=== PATIENT | female | born 1975 | race Caucasian/White ===

== ENCOUNTER 2017-04-23 08:22 | Emergency (ER) | payer OTHER ==
[~2017-04-23] VITALS: Ht 162.6 cm; Wt 89.8 kg
[~2017-04-23 08:22] MED LIST: DEBROX15 M1 LEFT EAR; IBUPROFEN800 MG ORAL; KEFLEX500 MG ORAL; METHADONE HCL10 MG PO
[2017-04-23 08:41] VITALS: BP 139/85
[2017-04-23] MEDS ORDERED: CLINDAMYCIN HC300 MG ORAL (08:47)
[2017-04-23 08:58] VITALS: BP 139/85
--- NOTE | 2017-04-23 08:58 | Emergency Room Report ---
History of Present Illness General Chief Complaint: Toothache Source: Patient Present Illness HPI 42-year-old female walked in with complaints of pain and swelling to right lower side of mouth associated with known cracked tooth. She states she tried to go to dentist however was unable to get appointment today and she states that her dentist won't pull to Michel infection history first. Has been taking ibuprofen 3 times a day and apply and ice for pain. Allergies: Coded Allergies: No Known Allergies (Unverified , 05/13/14) Patient History Past Medical History: none Past Surgical History: none Pertinent Family History: none Social History: Denies: smoking, alcohol use, drug use Now: No Immunizations: UTD Reviewed Nursing Documentation: PMH: Agreed, PSxH: Agreed Nursing Documentation-PMH Hx Hypertension: Yes - hyperlipidemia Hx Diabetes: Yes History Of Psychiatric Problem: Yes - Bipolar Review of Systems All Other Systems: negative except mentioned in HPI Physical Exam Vital Signs Date Time Temp Pulse Resp B/P (MAP) Pulse Ox O2 Delivery O2 Flow Rate FiO2 04/23/17 08:28 98.3 110 18 139/85 99 98.2 Sp02 EP Interpretation: reviewed, normal General Appearance: normal inspection, well appearing, no apparent distress, alert, GCS 15, non-toxic Head: normocephalic, atraumatic Eyes: bilateral eye PERRL, bilateral eye EOMI ENT: normal ENT inspection, hearing grossly normal, normal pharynx, no angioedema, normal voice, TMs + canals normal, uvula midline, moist mucus membranes, other - Tooth 30, 1st molar is cracked, jagged edge. Associated lateral gum swelling Neck: normal inspection, full range of motion, supple, thyroid normal, no meningismus, no bony tend Respiratory: normal inspection, lungs clear, normal breath sounds, no rhonchi, no respiratory distress, no retraction, no accessory muscle use, no wheezing, speaking full sentences Cardiovascular #1: regular rate, rhythm, no edema, no JVD, normal capillary refill Gastrointestinal: normal inspection, normal bowel sounds, non tender, soft, no mass, no peritonitis, non-distended, no guarding, no hernia, no pulsatile mass Genitourinary: no CVA tenderness Musculoskeletal: normal inspection, back normal, normal range of motion, no calf tenderness, pelvis stable, Stephen's Sign negative Neurologic: normal inspection, alert, oriented x3, responsive, member services coordinator III-XII nml as tested, motor strength/tone normal, cerebellar normal, normal gait, speech normal Psychiatric: normal inspection, judgement/insight normal, mood/affect normal, no suicidal/homicidal ideation, no delusions Skin: normal inspection, normal color, no rash Lymphatic: normal inspection, no adenopathy Medical Decision Making Diagnostic Impression: Primary Impression: Cracked tooth Additional Impression: Periapical abscess ER Course Vital signs stable Associated infection with cracked tooth #30, right lower mouth Provided antibiotics Recommend continued ibuprofen 3 times a day and applying ice Recommend close dental followup for extraction ER course: Patient has remained stable during ED stay. Disposition: Patient is to be discharged to home. Prescriptions given are clindamycin Patient is instructed to follow up with dentist in 2 days Strict return precautions discussed with patient such as fever, chills, worsening/severe pain, nausea, vomiting, which may indicate severe illness. Patient verbalizes understanding and agrees with plan. Please note that this Emergency Department Report was dictated using [employer] delivery manager technology software, occasionally this can lead to erroneous entry secondary to interpretation by the dictation equipment Last Vital Signs Date Time Temp Pulse Resp B/P (MAP) Pulse Ox O2 Delivery O2 Flow Rate FiO2 04/23/17 08:41 98.2 76 18 139/85 99 98.2 Status: improved Disposition: HOME, SELF-CARE Condition: Improved Scripts Clindamycin Hcl (CLINDAMYCIN HCL) 300 Mg Capsule 300 MG ORAL THREE TIMES A DAY for 7 Days, #21 CAP Prov: CAMILLE ZARATE M.D. 04/23/17 Patient Instructions: Dental Pain Additional Instructions: - Get over the counter clove oil and apply to broken tooth - Take ALL antibiotics to treat infection - Follow up with dentist for tooth extraction CAMILLE ZARATE M.D. Apr 23, 2017 08:58
== END 2017-04-23 09:00 | disposition home or self-care (01) ==
LOC: EMR 08:54
DX: K03.81 Cracked tooth (principal); K04.7 Periapical abscess without sinus; E11.9 Type 2 diabetes mellitus without complications; F31.9 Bipolar disorder, unspecified; E78.5 Hyperlipidemia, unspecified
CPT/HCPCS: 99283

== ENCOUNTER 2018-10-02 11:57 | Emergency (ER) | payer OTHER ==
[~2018-10-02] VITALS: Ht 162.6 cm; Wt 78.9 kg
[~2018-10-02 11:57] MED LIST changes: +CLINDAMYCIN HC300 MG ORAL
--- NOTE | 2018-10-02 12:24 | NUR ---
ED Nurse Note: Pt walked in ED, aaox4 c/o abdominal pain, worse when ambulating. Pt states she had enema yesterday with little BM output. ERMD at bedside.
[2018-10-02 12:28] VITALS: BP 114/73
--- NOTE | 2018-10-02 12:40 | Emergency Room Report ---
History of Present Illness General Chief Complaint: Abdominal Pain Source: Medical Record Present Illness HPI Patient is a 43-year-old female presents after increased suprapubic pain. Patient had prior history of opiate dependence and is currently on methadone treatment. She reports having decreased bowel movements over the past few days. She states she has had ovarian cyst in the past. She reports having no menses since initiation of methadone. Patient reports taking enema without any improvement in her constipation.Patient does report having a small bowel movement after using the enema. She states the pain was somewhat improved after this.Patient states that she looked into medication for opioid induced constipation which was too expensive for her. Allergies: Coded Allergies: No Known Allergies (Unverified , 05/13/14) Patient History Past Surgical History: none Reviewed Nursing Documentation: PMH: Agreed; PSxH: Agreed Nursing Documentation-PMH Past Medical History: No History, Except For Hx Hypertension: Yes - hyperlipidemia Hx Diabetes: Yes Hx Neurological Problems: Yes - sciatica pain, herniated disk Review of Systems All Other Systems: negative except mentioned in HPI Physical Exam Vital Signs Date Time Temp Pulse Resp B/P (MAP) Pulse Ox O2 Delivery O2 Flow Rate FiO2 10/02/18 12:04 97.7 82 18 114/73 (87) 97 Room Air Sp02 EP Interpretation: reviewed, normal General Appearance: normal inspection, well appearing, no apparent distress, alert, GCS 15 Head: atraumatic ENT: normal ENT inspection, hearing grossly normal, normal voice Neck: normal inspection, full range of motion, supple, no bony tend Respiratory: normal inspection, lungs clear, normal breath sounds, no respiratory distress, no retraction, no wheezing Cardiovascular #1: regular rate, rhythm, no edema Gastrointestinal: normal inspection, normal bowel sounds, non tender, soft, no guarding, no hernia Genitourinary: no CVA tenderness Musculoskeletal: normal inspection, back normal, normal range of motion Neurologic: normal inspection, alert, oriented x3, responsive, log handler III-XII nml as tested, motor strength/tone normal, speech normal Psychiatric: normal inspection, judgement/insight normal, mood/affect normal Medical Decision Making Diagnostic Impression: Primary Impression: Constipation ER Course Patient presented for abdominal pain. Differential diagnoses included ischemic bowel, appendicitis, perforated viscus, abdominal aortic aneurysm, inferior myocardial infarction, viral gastroenteritis among others. Patient has a benign exam and does not appear to require any further imaging or laboratory testing at this time. test was ordered due to patient history of abnormal menses. Last Vital Signs Date Time Temp Pulse Resp B/P (MAP) Pulse Ox O2 Delivery O2 Flow Rate FiO2 10/02/18 12:28 97.7 86 18 114/73 97 Room Air Status: improved Disposition: HOME, SELF-CARE Condition: Stable Obed Pearson MD Oct 02, 2018 12:40
[2018-10-02] MEDS ORDERED: LACTULOSE20 GM/301 ORAL (13:42)
[2018-10-02 13:48] VITALS: BP 110/75
--- NOTE | 2018-10-02 13:49 | NUR ---
ER DISCHARGE NOTE: Patient is cleared to be discharged per ERMD, pt is aox4, on room air, with stable vital signs. pt was given dc and prescription instructions, pt was able to verbalize understanding, pt id band removed. pt is able to ambulate with steady gait. pt took all belongings.
== END 2018-10-02 13:48 | disposition home or self-care (01) ==
LOC: EMR 12:36
DX: K59.00 Constipation, unspecified (principal); E11.9 Type 2 diabetes mellitus without complications; E78.5 Hyperlipidemia, unspecified; Z79.891 Long term (current) use of opiate analgesic
CPT/HCPCS: 81025; 99283

== ENCOUNTER 2018-12-08 12:21 | Emergency (ER) | payer OTHER ==
[~2018-12-08] VITALS: Ht 162.6 cm; Wt 79.4 kg
[~2018-12-08 12:21] MED LIST changes: +LACTULOSE20 GM/301 ORAL
--- NOTE | 2018-12-08 13:15 | Emergency Room Report ---
History of Present Illness General Chief Complaint: Dyspnea/Respdistress Source: Patient, Medical Record Present Illness HPI Patient 43-year-old female presents after increased left lower extremity discomfort. Patient had some prior history of similar symptoms in the past 1 week. She states she was recently at [facility] for left leg swelling. At that time she had a duplex ultrasound performed which showed no evidence of DVT. Patient states that the swelling had somewhat improved. She denies any vomiting or diarrhea. She reports having some increased discomfort to the left leg. She had some prior history of sciatica. She reports being a smoker. She denies any fever. Allergies: Coded Allergies: No Known Allergies (Unverified , 05/13/14) Patient History Last Menstrual Period: 10 yrs ago Nursing Documentation-[facility] Past Medical History: No History, Except For Hx Hypertension: Yes - hyperlipidemia Hx Diabetes: Yes Hx Neurological Problems: Yes - sciatica pain, herniated disk Review of Systems All Other Systems: negative except mentioned in HPI Physical Exam Vital Signs Date Time Temp Pulse Resp B/P (MAP) Pulse Ox O2 Delivery O2 Flow Rate FiO2 12/08/18 12:24 98.4 89 16 132/79 (96) 97 Room Air Sp02 EP Interpretation: reviewed, normal General Appearance: normal inspection, well appearing, no apparent distress, alert, GCS 15 Head: atraumatic ENT: normal ENT inspection, hearing grossly normal, normal voice Neck: normal inspection, full range of motion, supple, no bony tend Respiratory: normal inspection, lungs clear, normal breath sounds, no respiratory distress, no retraction, no wheezing Cardiovascular #1: regular rate, rhythm, no edema Gastrointestinal: normal inspection, normal bowel sounds, non tender, soft, no guarding, no hernia Genitourinary: no CVA tenderness Musculoskeletal: normal inspection, back normal, normal range of motion Neurologic: normal inspection, alert, oriented x3, responsive, riding coach III-XII nml as tested, speech normal Psychiatric: normal inspection, judgement/insight normal, mood/affect normal Skin: no rash, normal color Medical Decision Making Diagnostic Impression: Primary Impression: Leg pain ER Course Patient presented for left leg pain. Differential diagnosis include was not limited to deep venous thrombosis, vascular insufficiency, arthritis, sciatica among others. Patient has a benign exam and does not appear to require laboratory testing at this time. Urinalysis showed no definite infection. Duplex ultrasound showed no DVT. Patient was given prescription for medications for symptomatic treatment. Patient was advised to follow-up with primary care physician for recheck. She is advised to return if worse. Labs Test 12/08/18 13:15 Urine Color Pale yellow Urine Appearance Clear Urine pH 5 (4.5-8.0) Urine Specific [place] 1.010 (1.005-1.035) Urine Protein Negative (NEGATIVE) Urine Glucose (UA) Negative (NEGATIVE) Urine Ketones Negative (NEGATIVE) Urine Blood Negative (NEGATIVE) Urine Nitrite Negative (NEGATIVE) Urine Bilirubin Negative (NEGATIVE) Urine Urobilinogen Normal MG/DL (0.0-1.0) Urine Leukocyte Esterase 2+ (NEGATIVE) Urine RBC 0-2 /HPF (0 - 2) Urine WBC 5-10 /HPF (0 - 2) Urine Squamous Epithelial Cells Few /LPF (NONE/OCC) Urine Bacteria Few /HPF (NONE) Urine HCG, Qualitative Negative (NEGATIVE) Last Vital Signs Date Time Temp Pulse Resp B/P (MAP) Pulse Ox O2 Delivery O2 Flow Rate FiO2 12/08/18 12:24 98.4 89 16 132/79 (96) 97 Room Air Status: improved Disposition: HOME, SELF-CARE Condition: Stable Scripts Diclofenac Sodium (VOLTAREN) 100 Gm Gel..gram. 5 GM TP DAILY, #100 GM Prov: Obed Pearson MD 12/08/18 Referrals: NON PHYSICIAN (PCP) Obed Pearson MD Dec 08, 2018 13:15
[2018-12-08 13:30] LABS: APPEARANCE,URINE CLEAR; BILIRUBIN, URINE NEGATIVE (NEGATIVE); COLOR,URINE PALE YELLOW; GLUCOSE, URINE (UA) NEGATIVE (NEGATIVE); KETONES,URINE NEGATIVE (NEGATIVE); LEUKOCYTE ESTERASE ,URINE 2+ (NEGATIVE); NITRITE,URINE NEGATIVE (NEGATIVE); PH,URINE 5 (4.5-8.0); PROTEIN,URINE NEGATIVE (NEGATIVE); UROBILINOGEN,URINE NORMAL MG/DL (0.0-1.0)
--- NOTE | 2018-12-08 13:36 | NUR ---
ED Nurse Note:urine sent to labs and U/S done
[2018-12-08] MEDS ORDERED: VOLTAREN100 G1 TP (13:48)
--- NOTE | 2018-12-08 14:00 | NUR ---
ER DISCHARGE NOTE: Patient is cleared to be discharged per ERMD, pt is aox4, on room air, with stable vital signs. pt was given dc and prescription instructions, pt was able to verbalize understanding, pt is able to ambulate with steady gait. pt took all belongings.
[2018-12-08 14:05] VITALS: BP 132/79
[2018-12-08 14:07] VITALS: BP 132/79
--- NOTE | 2018-12-08 14:17 | Diagnostic Imaging Report ---
Indication: Left lower extremity pain and swelling. Technique: Duplex Doppler imaging performed from the left common femoral vein to the popliteal vein. FINDINGS: Normal compressibility demonstrated from the common femoral vein to the popliteal vein. Respiratory phasicity and good augmentation demonstrated on waveform analysis. There is no evidence of thrombosis. IMPRESSION: No evidence of deep venous thrombosis within the left lower extremity.
== END 2018-12-08 14:08 | disposition home or self-care (01) ==
LOC: EMR 12:40
DX: M79.605 Pain in left leg (principal); R60.0 Localized edema; E78.5 Hyperlipidemia, unspecified; E11.9 Type 2 diabetes mellitus without complications; F17.200 Nicotine dependence, unspecified, uncomplicated; I10 Essential (primary) hypertension
CPT/HCPCS: 81003; 81025; 93971; Z7502; 99284

== ENCOUNTER 2019-04-30 09:46 | Emergency (ER) | payer OTHER ==
[~2019-04-30] VITALS: Ht 162.6 cm; Wt 89.8 kg
[~2019-04-30 09:46] MED LIST changes: +VOLTAREN100 G1 TP
--- NOTE | 2019-04-30 10:03 | NUR ---
ED Nurse Note: PT WALKED IN DUE TO ELEVATED POTASSIUM OF 5.9 LEVEL AND BLOOD WORK DONE ON 04/27/19. STATE SNOT FEELING GOOD BUT DENIES CHEST PAIN. AAO X, AMBULATORY WITH NON LABORED BREATHING. NOTED PT TO ANXIOUS.
[2019-04-30] MEDS ORDERED: CLARITIN5 MG ORAL (10:04)
[2019-04-30] MEDS ORDERED: METHADONE HCL10 MG ORAL (10:04)
[2019-04-30] MEDS ORDERED: MIRTAZAPINE30 MG ORAL (10:04)
[2019-04-30] MEDS ORDERED: FENOFIBRATE43 MG ORAL (10:04)
[2019-04-30] MEDS ORDERED: SEROQUEL200 MG ORAL (10:04)
[2019-04-30] MEDS ORDERED: DEPAKOTE250 MG PO (10:04)
[2019-04-30] MEDS ORDERED: ATORVASTATIN CA20 MG ORAL (10:04)
[2019-04-30 10:09] VITALS: BP 140/69
--- NOTE | 2019-04-30 10:24 | NUR ---
ED Nurse Note: COLLECTED BLOOD SPECIMEN AND URINE THEN SENT TO LAB.
[2019-04-30 10:43] LABS: HEMATOCRIT 33.1 % (37.0-47.0); HEMOGLOBIN 10.6 G/DL (12.0-16.0); MEAN CORPUSCULAR VOLUME 87 FL (80-99); PLATELET COUNT 209 K/UL (150-450); RED BLOOD COUNT 3.79 M/UL (4.20-5.40); RED CELL DISTRIBUTION WIDTH 13.2 % (11.6-14.8); WHITE BLOOD COUNT 3.4 K/UL (4.8-10.8)
[2019-04-30 10:44] LABS: APPEARANCE,URINE CLEAR; BILIRUBIN, URINE NEGATIVE (NEGATIVE); COLOR,URINE PALE YELLOW; GLUCOSE, URINE (UA) NEGATIVE (NEGATIVE); KETONES,URINE NEGATIVE (NEGATIVE); LEUKOCYTE ESTERASE ,URINE 1+ (NEGATIVE); NITRITE,URINE NEGATIVE (NEGATIVE); PH,URINE 5 (4.5-8.0); PROTEIN,URINE NEGATIVE (NEGATIVE); UROBILINOGEN,URINE NORMAL MG/DL (0.0-1.0)
--- NOTE | 2019-04-30 10:49 | Emergency Room Report ---
History of Present Illness General Chief Complaint: Abnormal Labs Source: Patient, Medical Record Present Illness HPI 44-year-old female presents ED for abnormal labs. States that 2 days ago she had blood draw which showed elevated potassium of 5.9. Patient was told to go to the ER for evaluation. Patient states she feels very anxious since she heard the news. Feels nauseous and weak. Denies chest pain or shortness of breath. Denies any kidney problems. Denies history of hypertension. Notes high cholesterol and diabetes. Denies psychiatric history. No other aggravating relieving factors. Denies any other associated symptoms Allergies: Coded Allergies: No Known Allergies (Unverified , 05/13/14) Patient History Past Medical History: DM, psych hx Past Surgical History: none Pertinent Family History: none Social History: Denies: smoking, alcohol use, drug use Last Menstrual Period: 10 yrs ago Now: No Immunizations: UTD Reviewed Nursing Documentation: PMH: Agreed; PSxH: Agreed Nursing Documentation-PMH Hx Diabetes: Yes History Of Psychiatric Problem: Yes - bipolar, anxiety Hx Neurological Problems: Yes - sciatica pain, herniated disk Review of Systems All Other Systems: negative except mentioned in HPI Physical Exam Vital Signs Date Time Temp Pulse Resp B/P (MAP) Pulse Ox O2 Delivery O2 Flow Rate FiO2 04/30/19 09:53 98.1 115 22 151/95 (113) 96 Room Air Sp02 EP Interpretation: reviewed, normal General Appearance: no apparent distress, alert, GCS 15, non-toxic Head: normocephalic, atraumatic Eyes: bilateral eye normal inspection, bilateral eye PERRL ENT: hearing grossly normal, normal pharynx, no angioedema, normal voice Neck: full range of motion, supple/symm/no masses Respiratory: chest non-tender, lungs clear, normal breath sounds, speaking full sentences Cardiovascular #1: regular rate, rhythm, no edema Cardiovascular #2: 2+ carotid (R), 2+ carotid (L), 2+ radial (R), 2+ radial (L) , 2+ dorsalis pedis (R), 2+ dorsalis pedis (L) Gastrointestinal: normal bowel sounds, non tender, soft, non-distended, no guarding, no rebound Rectal: deferred Genitourinary: normal inspection, no CVA tenderness Musculoskeletal: back normal, normal range of motion, gait/station normal, non- tender Neurologic: alert, motor strength/tone normal, oriented x3, sensory intact, responsive, speech normal Psychiatric: judgement/insight normal, memory normal, no suicidal/homicidal ideation, anxious Reflexes: 3+ bicep (R), 3+ bicep (L), 3+ tricep (R), 3+ tricep (L), 3+ knee (R) , 3+ knee (L) Skin: no rash Lymphatic: no adenopathy Medical Decision Making Diagnostic Impression: Primary Impression: Abnormal laboratory test result ER Course Hospital Course 44-year-old female presents ED or evaluation of hyperkalemia. feels nauseous Differential diagnoses include: [place]/unstable angina, V. tach, bradycardia, hyperkalemia Clinical course Patient placed on stretcher. on inbound sales representative. After initial history and physical I ordered labs, EKG labs reviewed- potassium 4.4. Electrolytes okay. Hemoglobin/hematocrit normal. EKG - NSR no acute ischemic changes interpreted by me I discussed findings with patient. Reassurance given. I believe anxiety is contributing to her symptoms. Notes extensive psychiatric history. Will discharge home. Given copies of labs. Safe for discharge with close outpatient follow-up. I. I feel this is a highly complex case requiring extensive working including EKG/Rhythm strip, Xray/CT/US, Blood/urine lab work, repeat exams while in ED, and administration of strong opiates/narcotics for pain control, admission to hospital or close patient follow up. Diagnosis - abnormal laboratory result Discharged to home in stable condition. Followup with PMD. Return to ED if symptoms recur or worsen Labs Test 04/30/19 10:10 White Blood Count 3.4 K/UL (4.8-10.8) Red Blood Count 3.79 M/UL (4.20-5.40) Hemoglobin 10.6 G/DL (12.0-16.0) Hematocrit 33.1 % (37.0-47.0) Mean Corpuscular Volume 87 FL (80-99) Mean Corpuscular Hemoglobin 27.9 PG (27.0-31.0) Mean Corpuscular Hemoglobin Concent 31.9 G/DL (32.0-36.0) Red Cell Distribution Width 13.2 % (11.6-14.8) Platelet Count 209 K/UL (150-450) Mean Platelet Volume 8.6 FL (6.5-10.1) Neutrophils (%) (Auto) % (45.0-75.0) Lymphocytes (%) (Auto) % (20.0-45.0) Monocytes (%) (Auto) % (1.0-10.0) Eosinophils (%) (Auto) % (0.0-3.0) Basophils (%) (Auto) % (0.0-2.0) Differential Total Cells Counted 100 Neutrophils % (Manual) 37 % (45-75) Lymphocytes % (Manual) 52 % (20-45) Monocytes % (Manual) 9 % (1-10) Eosinophils % (Manual) 2 % (0-3) Basophils % (Manual) 0 % (0-2) Band Neutrophils 0 % (0-8) Platelet Estimate Adequate Platelet Morphology Normal Hypochromasia 1+ Urine Color Pale yellow Urine Appearance Clear Urine pH 5 (4.5-8.0) Urine Specific [place] 1.010 (1.005-1.035) Urine Protein Negative (NEGATIVE) Urine Glucose (UA) Negative (NEGATIVE) Urine Ketones Negative (NEGATIVE) Urine Blood 1+ (NEGATIVE) Urine Nitrite Negative (NEGATIVE) Urine Bilirubin Negative (NEGATIVE) Urine Urobilinogen Normal MG/DL (0.0-1.0) Urine Leukocyte Esterase 1+ (NEGATIVE) Urine RBC 0-2 /HPF (0 - 2) Urine WBC 2-4 /HPF (0 - 2) Urine Squamous Epithelial Cells Few /LPF (NONE/OCC) Urine Bacteria Few /HPF (NONE) Urine HCG, Qualitative Negative (NEGATIVE) Sodium Level 145 MMOL/L (136-145) Potassium Level 4.4 MMOL/L (3.5-5.1) Chloride Level 106 MMOL/L (98-107) Carbon Dioxide Level 26 MMOL/L (21-32) Anion Gap 14 mmol/L (5-15) Blood Urea Nitrogen 18 mg/dL (7-18) Creatinine 1.1 MG/DL (0.55-1.30) Estimat Glomerular Filtration Rate 53.5 mL/min (>60) Glucose Level 100 MG/DL (74-106) Calcium Level 9.1 MG/DL (8.5-10.1) Total Bilirubin 0.2 MG/DL (0.2-1.0) Aspartate Amino Transf (AST/SGOT) 20 U/L (15-37) Alanine Aminotransferase (ALT/SGPT) 35 U/L (12-78) Alkaline Phosphatase 55 U/L (46-116) Total Protein 7.5 G/DL (6.4-8.2) Albumin 3.8 G/DL (3.4-5.0) Globulin 3.7 g/dL Albumin/Globulin Ratio 1.0 (1.0-2.7) Urine Opiates Screen Negative (NEGATIVE) Urine Barbiturates Screen Negative (NEGATIVE) Phencyclidine (PCP) Screen Negative (NEGATIVE) Urine Amphetamines Screen Negative (NEGATIVE) Urine Benzodiazepines Screen Negative (NEGATIVE) Urine Cocaine Screen Negative (NEGATIVE) Urine Marijuana (THC) Screen Positive (NEGATIVE) EKG Diagnostic Results Rate: normal Rhythm: NSR ST Segments: no acute changes ASA given to the pt in ED: No Rhythm Strip Diag. Results EP Interpretation: yes Rhythm: NSR, no PVC's, no ectopy Last Vital Signs Date Time Temp Pulse Resp B/P (MAP) Pulse Ox O2 Delivery O2 Flow Rate FiO2 04/30/19 10:09 98.1 98 17 140/69 99 Room Air Status: improved Disposition: HOME, SELF-CARE Condition: Stable Referrals: [facility],REFERRING (PCP) Elver Bishop MD Apr 30, 2019 10:49
[2019-04-30 10:52] LABS: ANION GAP 14 mmol/L (5-15); BLOOD UREA NITROGEN 18 mg/dL (7-18); CALCIUM 9.1 MG/DL (8.5-10.1); CARBON DIOXIDE 26 MMOL/L (21-32); CHLORIDE 106 MMOL/L (98-107); CREATININE 1.1 MG/DL (0.55-1.30); POTASSIUM 4.4 MMOL/L (3.5-5.1); SODIUM 145 MMOL/L (136-145)
[2019-04-30 10:56] LABS: ALANINE AMINOTRANSFERASE 35 U/L (12-78); ALBUMIN 3.8 G/DL (3.4-5.0); ALKALINE PHOSPHATASE 55 U/L (46-116); ASPARTATE AMINO TRANSFERASE 20 U/L (15-37); BILIRUBIN,TOTAL 0.2 MG/DL (0.2-1.0)
[2019-04-30 11:35] VITALS: BP 123/75
--- NOTE | 2019-04-30 11:35 | NUR ---
ER DISCHARGE NOTE: Patient is cleared to be discharged per ERMD, pt is aox4, on room air, with stable vital signs. pt was given dc instructions, pt was able to verbalize understanding, pt id band and iv site removed without complications. pt is able to ambulate with steady gait. pt took all belongings.
== END 2019-04-30 11:35 | disposition home or self-care (01) ==
LOC: EMR 10:11
DX: E87.5 Hyperkalemia (principal); E11.9 Type 2 diabetes mellitus without complications; F31.9 Bipolar disorder, unspecified; F41.9 Anxiety disorder, unspecified; R11.0 Nausea; E78.00 Pure hypercholesterolemia, unspecified
CPT/HCPCS: 36415; 80053; 80307; 81003; 81025; 85007; 85025; 93005; 96360; Z7502; 99284